=== PATIENT | male | born 1995 | race Caucasian/White ===

== ENCOUNTER 2024-05-18 08:58 | Emergency (ER) | payer OTHER, SELFPAY ==
[2024-05-18 09:02] VITALS: BP 151/92
--- NOTE | 2024-05-18 09:34 | ED.GENMED ---
History of Present Illness
General
Chief Complaint: Back Pain
Source: patient
Exam Limitations: none
Time Seen by Provider: 05/18/24 09:25
History of Present Illness
History of Present Illness:
See MDM
Past History
Past History
ED Past Medical History: None
ED Past Surgical History: None
Social History
Tobacco: Non-smoker
Alcohol: None
Drug: None
Living: with family
Phy Exam
Physical Exam
Physical Exam:
See MDM
Course
Orders/Labs/Results
Orders:
Orders
05/18/24 09:33
Cyclobenzaprine HCl [Flexeril] 10 mg PO NOW STA
Ketorolac [Toradol] 30 mg IM NOW STA
Lumbar Spine Complete, 4 View [CR Lumbar Spine Comp Min 4 Vw*] Urgent
Comment:
Reason For Exam: left back pain radiating to left leg
Vital Signs
Initial and Last Documented VS:
Initial Vital Signs
Temp Pulse Resp BP Pulse Ox
98.4 F 89 18 151/92 99
05/18/24 09:02 05/18/24 09:02 05/18/24 09:02 05/18/24 09:02 05/18/24 09:02
Last Documented Vital Signs
Temp Pulse Resp BP Pulse Ox
98.4 F 89 18 151/92 99
05/18/24 09:02 05/18/24 09:02 05/18/24 09:02 05/18/24 09:02 05/18/24 09:02
MDM/Problems Addressed
Differential Diagnosis Includes:
HPI and MDM Narrative:
28-year-old male presenting for evaluation of right-sided back pain. He states he has intermittent back pain for the past year but never got it checked out. He had a slip on the ice but never actually fell. He strained his buttock and now he is
noticing the pain radiating from his back now into his buttock and his right thigh. He denies weakness. He denies trouble with defecation or urination. He denies rectal numbness.
On exam, patient is sitting in the chair. He is able to stand up on his own without difficulty. Currently, there is no numbness or tingling. He does have point tenderness in the right piriformis area. Given the chronic nature without prior
evaluation, will obtain x-ray but discussed outpatient MRI. We discussed likely spasm versus sciatica. The distal extremity is otherwise neurovascularly intact
Physical exam
General: Well appearing and non-toxic
HEENT: protecting airway
Neck: appears supple
CV: No evidence of cyanosis
Resp: No accessory muscle use
Back: Mild tenderness to right paralumbar musculature along L5/S1. Mild tenderness to right piriformis area
Abd: Non-distended
Extremities: No deformities
Neuro: alert
Psych: Normal affect
Skin: Intact
Problems Addressed including Acute and Chronic Conditions affecting care:
1. Sciatic back pain
Acuity: acute
Prognosis: stable
Details: Currently somewhat symptom-free. Will start NSAIDs and muscle relaxant and obtain lumbar x-ray
Updates
X-ray without significant abnormality. Discussed follow-up PCP to discuss physical therapy and MRI
Differential Diagnosis (but not limited to): Piriformis syndrome, sciatica, muscle spasm
Testing considered: Lumbar MRI but discussed that should be performed in the outpatient setting
Drug therapy (if applicable): OTC meds, please see d/c instruction regarding Rx drugs
Amount and/or Complexity of Data Reviewed
Clinical info obtained from: Patient
External data reviewed: N/A
Labs I independently reviewed (but not limited to): N/A
Radiology: x-ray independently reviewed: Lumbar x-ray without malalignment or fracture
Pulse Ox: not hypoxic
EKG independently reviewed: N/A
[employer] Systems [employer]: N/A
Critical Care: N/A
Risk of Complication:
Social Determinants of health: Good social support
Discussed with other providers: N/A
Escalation of Care includes Admit/Obs: After being observed in the Emergency Department, pt stable for discharge.
Occasional wrong word or 'sound a like' substitutions may have occurred due to the inherent limitations of voice recognition software. Read the chart carefully and recognize, using context, where substitutions have occurred.
*Critical Care Note
Total Time (30-74mins, 75-104mins- exclusive of procedures): Not Applicable
ED Attending Note
-
Portions of this chart may have been created with voice recognition software.� Occasional wrong word or��sound alike� substitutions may have occurred due to the inherent limitations of voice recognition software.
Discharge Plan
Departure
Patient Disposition: Home (Routine Discharge)
Date of Disposition: 05/18/24
Time of Disposition: 10:58
Patient with high blood pressure during this ER visit?: Yes
Discharge Problem:
Sciatica
Instructions: Sciatica (DC)
Prescriptions:
New
diclofenac potassium 50 mg tablet
50 mg PO BID Qty: 20 0RF
metaxalone 800 mg tablet
800 mg PO TID PRN (Reason: muscle pain) Qty: 14 0RF
No Action
cephalexin 500 MG capsule
500 mg PO QID Qty: 28 0RF
amoxicillin-pot clavulanate 875-125 mg tablet
1 tab PO Q12H 10 Days Qty: 20 0RF
ibuprofen 800 mg tablet
800 mg PO Q8H PRN (Reason: pain) 5 Days Qty: 15 0RF
Referrals:
Kierra Mares CRNP [Family Provider] -
Activity Restrictions/Additional Instructions:
Please return for any worsening symptoms.
You may return at any time if you have further concerns.
Please follow up with your doctor at the first available appointment, preferably this week. Please discuss your symptoms and please discuss physical therapy and MRI.
Thank you for choosing [facility].
Interventions
Interventions:
*Risk Screen - Suicide Last Done: 05/18/24 09:02
*General Assessment Last Done: 05/18/24 09:02
*Neglect/Abuse Screening Last Done: 05/18/24 09:02
Discharge Date and Time
Print Language: NEPALI
[2024-05-18] MEDS: TORADOL 30 MG IM (09:42)
[2024-05-18] MEDS: FLEXERIL 10 MG PO (09:42)
== END 2024-05-18 11:12 | disposition home or self-care (01) ==
LOC: EMR 08:58
PROVIDERS: EMERGENCY PHYSICIAN Student in an Organized Health Care Education/Training Program; FAMILY PHYSICIAN Nurse Practitioner Family
DX: M54.31 Sciatica, right side (principal)
CPT/HCPCS: 96372; 99284; 72110